=== PATIENT | female | born 1995 | race Caucasian/White ===

== ENCOUNTER 2019-03-23 18:10 | Inpatient (IN) | payer MEDICAID ==
[~2019-03-23] VITALS: Ht 154.9 cm; Wt 91.2 kg
[2019-03-23] MEDS ORDERED: LIDOCAINE 1% PF 30 ML VIAL. INJ PRN (18:30)
[2019-03-23] MEDS ORDERED: ACETAMINOPHEN 325 MG TABLET. PO PRN (18:30)
[2019-03-23] MEDS ORDERED: fentaNYL PF VIAL 100 MCG/2 ML VIAL IV PRN (18:30)
[2019-03-23] MEDS ORDERED: OXYTOCIN 30 UNIT/500 ML PREMIX 500 ML IV PRN (18:30)
[2019-03-23] MEDS ORDERED: IBUPROFEN 400 MG TABLET. PO PRN (18:30)
[2019-03-23] MEDS ORDERED: 0.9 % SODIUM CHLORIDE 10 ML DISP.SYRIN. IV PRN (18:30)
[2019-03-23] MEDS ORDERED: BUTORPHANOL 2 MG/ML VIAL. IV PRN (18:30)
[2019-03-23] MEDS ORDERED: NALBUPHINE 10 MG/ML AMPUL. IV PRN (18:30)
[2019-03-23] MEDS ORDERED: ZOLPIDEM 5 MG TABLET. PO PRN (18:30)
[2019-03-23] MEDS ORDERED: DINOPROSTONE 10 MG SUPP.VAG VG ONE (19:30)
[2019-03-23] MEDS: IV RINGERS,LACTATED 1000ML 1,000 ML IV PRN (19:41)
[2019-03-23 20:40] LABS: BASO # 0.1 x10^3/uL (0.0-0.2); BASO % 0 % (0-3); EOS # 0.4 x10^3/uL (0.0-0.7); EOS % 2 % (0-3); HEMATOCRIT 31.7 % (36.0-47.0); HEMOGLOBIN 10.4 g/dL (12.0-15.5); LYMPH # 2.6 x10^3/uL (1.0-4.8); LYMPH % 16 % (24-48); MEAN CORPUSCULAR HEMOGLOBIN 26 pg (25-35); MEAN CORPUSCULAR HGB CONC 33 g/dL (31-37); MEAN CORPUSCULAR VOLUME 79 fL (79-100); MONO # 1.2 x10^3/uL (0.0-1.1); MONO % 7 % (0-9); NEUT # 12.6 x10^3/uL (1.8-7.7); NEUT % 74 % (31-73); PLATELET COUNT 305 x10^3/uL (140-400); RED BLOOD COUNT 4.03 x10^6/uL (3.50-5.40); WHITE BLOOD COUNT 16.9 x10^3/uL (4.0-11.0)
[2019-03-23 21:04] LABS: % BANDS 5 % (0-9); % BASOS 1 % (0-3); % LYMPHS 13 % (24-48); % MONOS 2 % (0-10); % MYELOS 1 % (0-0); % SEGS 78 % (35-66); PLT ESTIMATE ADEQUATE (ADEQUATE)
[2019-03-24] MEDS ORDERED: OXYTOCIN 30 UNIT/500 ML PREMIX 500 ML IV PRN ×2 (08:00→23:15)
[2019-03-24] MEDS: IV RINGERS,LACTATED 1000ML 1,000 ML IV PRN (08:35)
[2019-03-24] MEDS ORDERED: ROPIVacaine 0.2% PF 10 ML VIAL. ONE ×2 (13:00→13:01)
[2019-03-24] MEDS ORDERED: L&D EPIDURAL SYRINGE 50 ML ONE ×2 (13:01→15:58)
[2019-03-24] MEDS: IV RINGERS,LACTATED 1000ML 1,000 ML IV SCH ×2 (15:10→19:20)
[2019-03-24] MEDS ORDERED: NALOXONE 0.4 MG/ML VIAL. IV PRN (15:15)
[2019-03-24] MEDS ORDERED: ePHEDrine PF IN SALINE 50 MG/10 ML SYRINGE. IV PRN (15:15)
[2019-03-24] MEDS ORDERED: ROPIVacaine 0.2% IN 0.9%NACL PF 40 MG/20 ML DISP.SYRIN. EPID PRN (15:15)
[2019-03-24] MEDS ORDERED: L&D EPIDURAL CASSETTE 100 ML EPID PRN (15:15)
[2019-03-24] MEDS: L&D EPIDURAL SYRINGE 50 ML EPID PRN ×4 (16:34→22:03)
[2019-03-24] MEDS ORDERED: diphenhydrAMINE HCL 25 MG CAPSULE PO PRN ×2 (19:00→23:15)
[2019-03-24] MEDS ORDERED: MMR per PROTOCOL. MC PRN (23:06)
--- NOTE | 2019-03-24 23:14 | PDOC1 ---
OB - History Hx of Present Care: Good Care Obstetrical Complications: None Medical Complications: None Past Family/Social History * Past Medical, Surgical, Family and Obstetric Histories reviewed from chart. Blood Type: O+ Rubella: Immune RPR/VDRL: Negative GBS Status: Negative HBsAG: Negative OB - Chief Complaint & HPI Date of Admission: Date of Admission: Mar 23, 2019 at 18:10 Chief Complaint/History : 3 Para: 2 EDC: Mar 26, 2019 Reason for admission: induction of labor Admission Nurse Assessment Rev: Yes OB - Admission Exam Physical Exam Vitals: VS - Last 72 Hours, by Label Date Time Temp Pulse Resp B/P (MAP) Pulse Ox O2 Delivery O2 Flow Rate FiO2 03/24/19 22:03 20 Room Air 03/24/19 19:19 16 03/24/19 16:35 18 03/24/19 16:34 16 Room Air HEENT: Normal, Nasal Mucosa Normal, Oropharynx Normal, Moist Membranes, Fontanelles Normal Heart: Regular Rate Lungs: Clear, Equal Abdomen: Gravid Extremities: Normal Pulses, No tenderness or swelling Reflexes: Normal Cervical Dilatation: 2cm Effacement: 25% Station: -2 Membranes: Intact Amniotic Fluid: Clear Heart Rate: Normal Accelerations: Accelerations Present Contractions on Admission: None Assessment/Plan Assessment/Plan TIUP Induction ACSVD DEONTE MCMANUS MD Mar 24, 2019 23:14
[2019-03-24] MEDS ORDERED: ZOLPIDEM 5 MG TABLET. PO PRN (23:15)
[2019-03-24] MEDS ORDERED: SIMETHICONE 80 MG TAB.CHEW PO PRN (23:15)
[2019-03-24] MEDS ORDERED: 0.9 % SODIUM CHLORIDE 10 ML DISP.SYRIN. IV PRN (23:15)
[2019-03-24] MEDS ORDERED: MAGNESIUM HYDROXIDE 2,400 MG/30 ML ORAL.SUSP. PO PRN (23:15)
[2019-03-24] MEDS ORDERED: MAG HYDROX/ALUMINUM HYD/SIMETH 30 ML ORAL.SUSP PO PRN (23:15)
[2019-03-24] MEDS ORDERED: PHENYLEPH/MINERAL OIL/PETROLAT RECTAL OINTMENT TUBE. RC PRN (23:15)
[2019-03-24] MEDS ORDERED: BENZOCAINE 20% TOPICAL AEROSOL SPRAY 57GM CAN. TP PRN (23:15)
[2019-03-24] MEDS ORDERED: HYDROCORTISONE 1% TOPICAL OINTMENT 30GM TUBE. TP PRN (23:15)
--- NOTE | 2019-03-24 23:37 | PDOC ---
VAGINAL DELIVERY DATE DATE: 03/24/19 TIME: 23:33 : 3 Para: 2 EDC: Mar 26, 2019 VAGINAL DELIVERY: VTX VACCUM ASSISTED: No PLACENTA: Spontaneous SEX: Male WEIGHT 7/12 Nuchal Cord: No, Times 1, Loose Amniotic Fluid: Clear PAIN: Epidural EPISIOTOMY: No EBL 400cc COMPLICATIONS none CONDITION stable Signs of Intrauterine Infectio: None Shoulder Dystocia: No DIAGNOSIS TIUP DEONTE Fernandez MD Mar 24, 2019 23:37
[2019-03-24] MEDS ORDERED: miSOPROStol 200 MCG TABLET PR ONE (23:45)
[2019-03-25] MEDS: ONDANSETRON PF 4 MG/2 ML VIAL. IV PRN ×2 (00:59→07:28)
[2019-03-25] MEDS: IBUPROFEN 400 MG TABLET. PO PRN ×3 (01:01→16:57)
[2019-03-25 02:00] VITALS: BP 117/73
[2019-03-25 03:29] VITALS: BP 109/69
[2019-03-25] MEDS ORDERED: IBUPROFEN 400 MG TABLET. PO SCH (06:00)
[2019-03-25] MEDS: IV RINGERS,LACTATED 1000ML 1,000 ML IV SCH (07:03)
[2019-03-25] MEDS: ACETAMINOPHEN 325 MG TABLET. PO PRN ×2 (07:28→13:24)
[2019-03-25] MEDS ORDERED: ONDANSETRON ODT 4 MG TAB.RAPDIS. PO PRN (07:45)
[2019-03-25] MEDS: PANTOPRAZOLE 40 MG TABLET.DR. PO SCH (07:54)
--- NOTE | 2019-03-25 07:58 | PDOC ---
OB Progress Note Date of Service 03/25/19 Time of Evaluation 0755 Notes Pt. feeling well. Pain moderately controlled. Will help manage pain control. Lab Laboratory Tests Test 03/23/19 19:30 03/25/19 05:30 White Blood Count 16.9 x10^3/uL (4.0-11.0) Red Blood Count 4.03 x10^6/uL (3.50-5.40) Hemoglobin 10.4 g/dL (12.0-15.5) Hematocrit 31.7 % (36.0-47.0) 26.3 % (36.0-47.0) Mean Corpuscular Volume 79 fL (79-100) Mean Corpuscular Hemoglobin 26 pg (25-35) Mean Corpuscular Hemoglobin Concent 33 g/dL (31-37) Red Cell Distribution Width 15.0 % (11.5-14.5) Platelet Count 305 x10^3/uL (140-400) Neutrophils (%) (Auto) 74 % (31-73) Lymphocytes (%) (Auto) 16 % (24-48) Monocytes (%) (Auto) 7 % (0-9) Eosinophils (%) (Auto) 2 % (0-3) Basophils (%) (Auto) 0 % (0-3) Neutrophils # (Auto) 12.6 x10^3/uL (1.8-7.7) Lymphocytes # (Auto) 2.6 x10^3/uL (1.0-4.8) Monocytes # (Auto) 1.2 x10^3/uL (0.0-1.1) Eosinophils # (Auto) 0.4 x10^3/uL (0.0-0.7) Basophils # (Auto) 0.1 x10^3/uL (0.0-0.2) Segmented Neutrophils % 78 % (35-66) Band Neutrophils % 5 % (0-9) Lymphocytes % 13 % (24-48) Monocytes % 2 % (0-10) Basophils % 1 % (0-3) Myelocytes % 1 % (0-0) Platelet Estimate Adequate (ADEQUATE) Treponema pallidum Antibody Nonreactive (Nonreactive) Laboratory Tests Test 03/25/19 05:30 Hematocrit 26.3 % (36.0-47.0) Medications Current Medications Sodium Chloride (Normal Saline Flush) 3 ml QSHIFT PRN IV AFTER MEDS AND BLOOD DRAWS; Start 03/23/19 at 18:30; Stop 03/24/19 at 23:22; Status DC Ringer's Solution 1,000 ml @ 125 mls/hr Q8H PRN IV PER PROTOCOL Last administered on 03/24/19at 08:35; Start 03/23/19 at 18:30; Stop 03/24/19 at 23:22; Status DC Nalbuphine HCl (Nubain) 10 mg PRN Q1HR PRN IV Severe labor pain; Start 03/23/19 at 18:30 Butorphanol Tartrate (Stadol) 2 mg PRN Q1HR PRN IV Severe labor pain; Start 03/23/19 at 18:30 Fentanyl Citrate (Fentanyl 2ml Vial) 100 mcg PRN Q1HR PRN IV Severe pain; Start 03/23/19 at 18:30 Acetaminophen (Tylenol) 650 mg PRN Q6HRS PRN PO MILD PAIN / TEMP; Start 03/23/19 at 18:30; Stop 03/24/19 at 23:22; Status DC Ondansetron HCl (Zofran) 4 mg PRN Q4HRS PRN IV NAUSEA/VOMITING Last administered on 03/25/19at 07:28; Start 03/23/19 at 18:30; Stop 03/25/19 at 07:44; Status DC Zolpidem Tartrate (Ambien) 5 mg PRN QHS PRN PO INSOMNIA Last administered on 03/24/19at 00:06; Start 03/23/19 at 18:30; Stop 03/24/19 at 23:22; Status DC Lidocaine HCl (Xylocaine 1% Pf 30ml Vial) 30 ml 1X PRN PRN INJ SEE COMMENTS; Start 03/23/19 at 18:30; Stop 03/25/19 at 18:29 Oxytocin/Sodium Chloride 500 ml @ 0 mls/hr CONT PRN IV SEE I/O RECORD Last administered on 03/24/19at 08:35; Start 03/24/19 at 08:00; Stop 03/24/19 at 23:22; Status DC Oxytocin/Sodium Chloride 500 ml @ 0 mls/hr CONT PRN PRN IV Post delivery bleeding; Start 03/23/19 at 18:30; Stop 03/24/19 at 23:22; Status DC Ibuprofen (Motrin) 800 mg PRN Q6HRS PRN PO PAIN; Start 03/23/19 at 18:30; Stop 03/24/19 at 23:22; Status DC Dinoprostone (Cervidil) 10 mg 1X ONCE VG Last administered on 03/23/19at 19:40; Start 03/23/19 at 19:30; Stop 03/23/19 at 19:31; Status DC Ropivacaine (Naropin 0.2%) 10 ml STK-MED ONCE .ROUTE ; Start 03/24/19 at 13:01; Stop 03/24/19 at 13:01; Status DC Fentanyl Citrate 50 ml @ As Directed STK-MED ONCE .ROUTE ; Start 03/24/19 at 13:01; Stop 03/24/19 at 13:01; Status DC Fentanyl Citrate 100 ml @ 14 mls/hr CONT PRN EPID PAIN; Start 03/24/19 at 15:15; Stop 03/25/19 at 14:14 Ringer's Solution 1,000 ml @ 125 mls/hr Q8H IV Last administered on 03/24/19at 19:20; Start 03/24/19 at 15:03 Ephedrine Sulfate (ePHEDrine PF IN SALINE SYRINGE) 10 mg PRN Q2MIN PRN IV IF SBP<90; Start 03/24/19 at 15:15 Naloxone HCl (Narcan) 0.04 mg PRN Q1MIN PRN IV SEE COMMENTS; Start 03/24/19 at 15:15 Ropivacaine/ Sodium Chloride (ROPIVacaine 0.2% - 0.9%NACL PF) 40 mg PRN 1X PRN EPID SEE COMMENTS; Start 03/24/19 at 15:15 Fentanyl Citrate 50 ml @ As Directed STK-MED ONCE .ROUTE ; Start 03/24/19 at 15:58; Stop 03/24/19 at 15:59; Status DC Fentanyl Citrate 50 ml @ 14 mls/hr CONT PRN EPID PAIN Last administered on 03/24/19at 22:03; Start 03/24/19 at 16:15 Diphenhydramine HCl (Benadryl) 50 mg PRN QHS PRN PO INSOMNIA Last administered on 03/24/19at 19:19; Start 03/24/19 at 19:00 Sodium Chloride (Normal Saline Flush) 10 ml QSHIFT PRN IV AFTER MEDS AND BLOOD DRAWS; Start 03/24/19 at 23:15 Oxytocin/Sodium Chloride 500 ml @ 62.5 mls/hr CONT PRN IV SEE I/O RECORD; Start 03/24/19 at 23:15; Stop 03/25/19 at 07:14; Status DC Acetaminophen (Tylenol) 650 mg PRN Q6HRS PRN PO MILD PAIN / TEMP Last administered on 03/25/19at 07:28; Start 03/24/19 at 23:15 Ibuprofen (Motrin) 800 mg Q8HRS PO ; Start 03/25/19 at 06:00; Stop 03/24/19 at 23:21; Status DC Ibuprofen (Motrin) 800 mg PRN Q8HRS PRN PO INFLAMMATION/PAIN PREVENTION Last administered on 03/25/19at 01:01; Start 03/24/19 at 23:15 Magnesium Hydroxide (Milk Of Magnesia) 2,400 mg PRN DAILY PRN PO CONSTIPATION; Start 03/24/19 at 23:15 Al Hydroxide/Mg Hydroxide (Mylanta Plus Xs) 30 ml PRN Q4HRS PRN PO HEARTBURN / GAS; Start 03/24/19 at 23:15 Simethicone (Gas-X) 80 mg PRN AFTMEALHC PRN PO GAS / BLOATING; Start 03/24/19 at 23:15 Diphenhydramine HCl (Benadryl) 25 mg PRN Q6HRS PRN PO ITCHING; Start 03/24/19 at 23:15 Benzocaine (Americaine) 1 spray PRN QID PRN TP TOPICAL PAIN; Start 03/24/19 at 23:15 Phenyleph/Shark Oil/Min Oil/Petrol (Preparation H) 1 bettie PRN QID PRN RC RECTAL PAIN; Start 03/24/19 at 23:15 Hydrocortisone (Cortaid) 1 bettie PRN QID PRN TP PERINEAL PAIN; Start 03/24/19 at 23:15 Ferrous Sulfate (Feosol) 325 mg BIDWMEALS PO ; Start 03/25/19 at 08:00 Zolpidem Tartrate (Ambien) 5 mg PRN QHS PRN PO INSOMNIA, MAY REPEAT X1; Start 03/24/19 at 23:15 Info (Do NOT chart on this placeholder) 1 ea 1X PRN PRN MC SEE COMMENTS; Start 03/24/19 at 23:15 Info (Do NOT chart on this placeholder) 1 ea 1X PRN PRN MC SEE COMMENTS; Start 03/24/19 at 23:06 Misoprostol (Cytotec 200mcg Tab) 800 mcg 1X ONCE NH Last administered on 03/24/19at 23:42; Start 03/24/19 at 23:45; Stop 03/24/19 at 23:46; Status DC Ondansetron HCl (Zofran Odt) 4 mg PRN Q6HRS PRN PO NAUSEA/VOMITING; Start 03/25/19 at 07:45 Pantoprazole Sodium (Protonix) 40 mg DAILYAC PO Last administered on 03/25/19at 07:54; Start 03/25/19 at 08:00 Exam Abd: soft, moderate tenderness, fundus firm Assessment PPD#1 s/p Plan of Care: Continue current Tx, Mgmt ANA ROSA DICKENS Jr, MD Mar 25, 2019 07:58
[2019-03-25 08:06] VITALS: BP 104/66
[2019-03-25] MEDS: FERROUS SULFATE 325 MG TABLET. PO SCH ×2 (08:59→16:56)
[2019-03-25 11:20] VITALS: BP 99/54
[2019-03-25] MEDS ORDERED: HYDROcodone/APAP 5/325MG 1 TAB TABLET PO PRN (15:00)
[2019-03-25 17:00] VITALS: BP 104/63
[2019-03-25] MEDS: HYDROcodone/APAP 5/325MG 1 TAB TABLET PO PRN (20:01)
[2019-03-26] MEDS: IBUPROFEN 400 MG TABLET. PO PRN (02:44)
[2019-03-26] MEDS: PANTOPRAZOLE 40 MG TABLET.DR. PO SCH (08:17)
[2019-03-26] MEDS: FERROUS SULFATE 325 MG TABLET. PO SCH (08:17)
[2019-03-26] MEDS: HYDROcodone/APAP 5/325MG 1 TAB TABLET PO PRN (08:22)
--- NOTE | 2019-03-26 09:59 | NUR ---
Discharge Note: Discharge instructions and discharge home medications reviewed with Patient and a copy given. All questions have been answered and understanding verbalized. The following instructions and handouts were given: Diet, Activity, care booklet, medications, vaginal and perineal care, breast care, and complications. Call with any questions. Prescription for Motrin 800mg 1 tab TID for pain; [place] 5/325mg 1 tab Q6hrs PRN for pain. Patient discharged to home with driving.
--- NOTE | 2019-03-26 14:21 | PDOC3 ---
OB DISCHARGE SUMMARY DATE OF ADMISSION: 03/23/20 DATE OF DISCHARGE: 03/26/20 REASON FOR ADMISSION: Induction of labor PROCEDURES: Ultrasound INTRAPARTUM PROCEDURES: Spontanous Vag Deliv OPERATIONS: None DISCHARGE DIAGNOSIS: Term Delivered DISCHARGE INFORMATION: Activity, Diet HOSPITAL COURSE Home unremarkable CONDITION AT DISCHARGE Stable DEONTE MCMANUS MD Mar 26, 2019 14:21
== END 2019-03-26 10:45 | disposition home or self-care (01) | DRG 806 ==
LOC: 3 SO LND 18:10 → 3 NORTH 03-25 02:30
PROVIDERS: ADMIT Specialist; ATTEND Specialist
PROC: 10E0XZZ Delivery of Products of Conception, External Approach (ICD-10-PCS; principal; 2019-03-23)
PROC: 10907ZC Drainage of Amniotic Fluid, Therapeutic from Products of Conception, Via Natural or Artificial Opening (ICD-10-PCS; 2019-03-23)
PROC: 3E033VJ Introduction of Other Hormone into Peripheral Vein, Percutaneous Approach (ICD-10-PCS; 2019-03-23)
PROC: 00HU33Z Insertion of Infusion Device into Spinal Canal, Percutaneous Approach (ICD-10-PCS; 2019-03-23)
PROC: 3E0R3BZ Introduction of Anesthetic Agent into Spinal Canal, Percutaneous Approach (ICD-10-PCS; 2019-03-23)
DX: O69.81X0 Labor and delivery complicated by cord around neck, without compression, not applicable or unspecified (principal); R71.0 Precipitous drop in hematocrit; Z37.0 Single live birth; Z3A.39 39 weeks gestation of pregnancy; O75.89 Other specified complications of labor and delivery
CPT/HCPCS: 36415; 85007; 85014; 85025; 86592; 86850; 86900; 86901; J2405; J2590; J2795; J7120; Q0163; G0378